=== PATIENT | female | born 1945 | race Caucasian/White ===

== ENCOUNTER 2022-05-12 05:19 | Day surgery (SDC) | payer MEDICARE, OTHER ==
[~2022-05-12 05:19] MED LIST: Sodium Chloride 0.9% 10 ML Syringe FLUSH SCH
[2022-05-12] MEDS ORDERED: fentaNYL 100 MCG/2 ML SDV IV ONE ×4 (05:20→06:50)
[2022-05-12] MEDS ORDERED: Midazolam 1 MG/ML 2 ML SDV IV ONE ×7 (05:20→06:46)
[2022-05-12] MEDS ORDERED: Sodium Chloride 0.9% 10 ML Syringe FLUSH PRN (06:00)
[2022-05-12] MEDS ORDERED: Dextrose 5%-0.45% NaCl 1,000 ML IV SCH (06:00)
[2022-05-12] MEDS ORDERED: fentaNYL 100 MCG/2 ML SDV ONE (06:16)
[2022-05-12] MEDS ORDERED: Midazolam 1 MG/ML 2 ML SDV ONE (06:16)
[2022-05-12 12:45] VITALS: BP 138/69; PULSE 73
== END 2022-05-12 09:12 | disposition home or self-care (01) ==
LOC: DL.ENDO 05:19
PROVIDERS: ATTEND Internal Medicine Gastroenterology
DX: K57.30 Diverticulosis of large intestine without perforation or abscess without bleeding (principal); D50.9 Iron deficiency anemia, unspecified; K59.00 Constipation, unspecified; M54.50 Low back pain, unspecified; R73.9 Hyperglycemia, unspecified; E66.09 Other obesity due to excess calories; D69.6 Thrombocytopenia, unspecified; D68.51 Activated protein C resistance; F41.1 Generalized anxiety disorder; Z98.890 Other specified postprocedural states; Z88.8 Allergy status to other drugs, medicaments and biological substances; Z88.5 Allergy status to narcotic agent
CPT/HCPCS: 45378; J2250; J3010; J7042

== ENCOUNTER 2024-05-19 06:28 | Day surgery (SDC) | payer MEDICARE, OTHER ==
[2024-05-19] MEDS ORDERED: fentaNYL 100 MCG/2 ML SDV IV ONE (06:29)
[2024-05-19] MEDS ORDERED: Midazolam 1 MG/ML 2 ML SDV IV ONE (06:29)
[2024-05-19] MEDS: Dextrose 5%-0.45% NaCl 1,000 ML IV SCH (06:59)
[2024-05-19] MEDS ORDERED: fentaNYL 100 MCG/2 ML SDV ONE (07:05)
[2024-05-19] MEDS ORDERED: Midazolam 1 MG/ML 2 ML SDV ONE (07:05)
[2024-05-19] MEDS: fentaNYL 100 MCG/2 ML SDV IV ONE ×3 (07:55→07:57)
[2024-05-19] MEDS: Midazolam 1 MG/ML 2 ML SDV IV ONE ×3 (07:56→07:58)
[2024-05-19 09:44] VITALS: BP 123/48; PULSE 66
== END 2024-05-19 09:50 | disposition home or self-care (01) ==
LOC: DL.ENDO 06:28
PROVIDERS: ATTEND Internal Medicine Gastroenterology
DX: K29.50 Unspecified chronic gastritis without bleeding (principal); K21.9 Gastro-esophageal reflux disease without esophagitis; Z88.5 Allergy status to narcotic agent; Z88.8 Allergy status to other drugs, medicaments and biological substances
CPT/HCPCS: 87077; 88305; 88342; J2250; J3010; J7799